=== PATIENT | female | born 1990 | race Hispanic/Latino ===

== ENCOUNTER 2018-07-27 10:35 | Emergency (ER) | payer SELFPAY ==
[~2018-07-27] VITALS: Ht 152.4 cm; Wt 74.8 kg
[2018-07-27] MEDS ORDERED: CEFTRIAXONE SOD 1 GM VIAL IM ONE (11:00)
[2018-07-27 12:20] LABS: PREGNANCY TEST, URINE NEGATIVE (NEGATIVE)
[2018-07-27 12:22] LABS: BILIRUBIN,URINE NEGATIVE (NEGATIVE); CLARITY,URINE SL CLOUDY (CLEAR); COLOR,URINE YELLOW (YELLOW); KETONES,URINE NEGATIVE (NEGATIVE); LEUKOCYTE ESTERASE ,URINE LARGE (NEGATIVE); NITRITE,URINE NEGATIVE (NEGATIVE); PROTEIN,URINE DIPSTICK NEGATIVE (NEGATIVE); URINE UROBILINOGEN 0.2 mg/dL (0.2 - 1)
[2018-07-27 12:48] LABS: BACTERIA,URINE MANY /HPF; EPITHELIAL CELLS,URINE MANY /LPF; RBC,URINE >50 /HPF (0-5); WBC,URINE (MAN) >50 /HPF (0-5)
[2018-07-27 13:02] VITALS: BP 129/95
== END 2018-07-27 13:06 | disposition home or self-care (01) ==
LOC: ER 10:35 → EDBD 10:35 → ER 13:06
DX: R30.0 Dysuria (principal); N39.0 Urinary tract infection, site not specified
CPT/HCPCS: 81001; 81025; 87086; 99283; J0696